=== PATIENT | male | born 1985 | race Caucasian/White ===

== ENCOUNTER 2020-12-30 12:43 | Emergency (ER) | payer OTHER, SELFPAY ==
[2020-12-30] VITALS (8 sets, daily range): BP systolic 124–146; BP diastolic 68–93; PULSE 68–84; RESP 16–18; TEMP 36.7–36.8; O2SAT 98–99
--- NOTE | 2020-12-30 12:53 | ED_ITS ---
HPI - Head Injury General Chief complaint: Trauma Stated complaint: injury to head/shoulder/elbow yest. Time Seen by Provider: 12/30/20 12:44 Source: patient Mode of arrival: Ambulatory Limitations: no limitations History of Present Illness HPI Narrative: 35-year-old male nonsmoker with noncontributory medical history presents with a chief complaint of multiple injuries suffered as a result of a work related injury. He was at a job site and walking up 7 steps when he misjudged the distance of an overhead beam and ran his head directly into it, this caused him to fall backwards and down the stairs. He does have an abrasion on the top of his head but denies any loss of consciousness, nausea or vomiting. He denies neurologic symptoms such as blurred vision, numbness, tingling, weakness. He has some upper cervical midline pain and some lower thoracic midline pain that is moderate at worst. The symptoms are worse with motion and improves with rest. He denies any chest pain or shortness of breath. He denies any numbness, tingling or weakness in his groin nor loss of control of bowel or bladder. Finally he has pain and swelling of his right ankle as a consequence of the fall MD Complaint: head injury and fall Onset (ago): day(s) Mechanism of Injury: fall Place: work Loss of Consciousness: no Location of injury: parietal Severity: moderate Radiation: neck Other Injuries: neck and lower extremity Associated symptoms: denies other symptoms Related Data Home Medications Medication Instructions Recorded Confirmed ibuprofen 200 mg PO PRN PRN #0 05/03/17 Previous Rx's Medication Instructions Recorded cyclobenzaprine 10 mg PO TID PRN #14 tab 12/30/20 ketorolac 10 mg PO Q6H PRN #14 tab 12/30/20 Allergies Allergy/AdvReac Type Severity Reaction Status Date / Time ENVIRONMENTAL Allergy Mild ITCHY Uncoded 11/29/17 12:36 THROAT Review of Systems Constitutional Constitutional: Denies chills, Denies fatigue, Denies fever(s), Denies frequent falls, Denies lethargy and Denies weakness Eyes Eyes: Denies change in vision, Denies eye discharge, Denies irritation and Denies loss of vision ENT Ears, Nose, Mouth, and Throat: Denies change in voice, Denies dizziness, Reports neck pain, Denies sore throat and Denies throat swelling Cardiovascular Cardiovascular: Denies chest pain, Denies irregular heart rhythm, Denies lightheadedness, Denies palpitations, Denies dyspnea, Denies dyspnea on exertion and Denies orthopnea Respiratory Respiratory: Denies cough, Denies dyspnea, Denies dyspnea on exertion and Denies wheezing Gastrointestinal Gastrointestinal: Denies abdominal pain, Denies change in bowel habits, Denies diarrhea, Denies nausea and Denies vomiting Musculoskeletal Musculoskeletal: Reports back pain, Reports arthralgias, Reports joint swelling, Reports neck pain and Denies numbness Integumentary/Breasts Skin/Breast: Denies pruritus, Denies erythema, Denies rash and Denies wounds Neurologic Neurologic: Denies behavioral changes, Denies confusion, Denies dizziness, Denies frequent falls, Denies loss of vision, Denies numbness and Denies weakness Psychiatric Psychiatric: Denies anxiety, Denies behavioral changes, Denies confusion, Denies depression, Denies homicidal ideation and Denies suicidal ideation Endocrine Endocrine: Denies fatigue, Denies flushing and Denies palpitations Hematologic/Lymphatic Hematologic/Lymphatic: Denies easy bruising Allergic/Immunologic Allergic/Immunologic: Denies urticaria, Denies throat swelling and Denies wheezing Patient History Family History Grandfather Stroke Social History Smoking Status: Never smoker Smoking Status: Never smoker alcohol intake frequency: 0-2 drinks per day Substance Use Type: does not use Exam Narrative Exam Narrative: GENERAL: [35] year old patient appears stated age. Well- nourished, well-developed patient, in mild distress. GCS 15 HEAD: Mild contusion and well-healed abrasion midline on the parietal scalp, no evidence of depressed skull fracture EYES: Pupils equal round and reactive. No hyphema Extraocular motions intact. No scleral icterus. No injection or drainage. ENT: Nose without bleeding, purulent drainage. No nasal septal hematoma Throat without erythema, tonsillar hypertrophy or exudate. Airway patent. NECK: Trachea midline. Mild midline tenderness of the cervical spine, no crepitance or step-offs. Patient was injured yesterday and is self splinting, no C-collar indicated CARDIOVASCULAR: Regular rate and rhythm without murmurs, gallops, or rubs. RESPIRATORY: Clear to auscultation. Breath sounds equal bilaterally. No wheezes, rales, or rhonchi. GASTROINTESTINAL: Abdomen soft, non-tender, nondistended. BACK: asphalt heater tender but free of any obvious external abnormalities. Patient exam notes decreased range of motion and muscle spasm, but no CVA tenderness, or vertebral point tenderness. There are no symptoms of cauda equina such as saddle anesthesia, and decreased reflexes, decreased sensation or strength. EXTREMITIES: Superficial abrasion overlying the right scapula, no significant swelling or ecchymosis, full but painful range of motion. Additional mild tenderness to the anterior shoulder but again, full range of motion. Right ankle tender to palpation with moderate swelling over lateral malleolus. These orthopedic injuries are closed and neurovascularly intact. BACK: Nontender without deformity or crepitance. No flank tenderness. NEURO: AOx3. SKIN: No rash or erythema of visible areas Initial Vital Signs Initial Vital Signs: Vital Signs Pulse Rate 84 12/30/20 13:02 Pulse Oximetry 99 12/30/20 13:02 Course Orders Ordered: ED Orders 12/30/20 13:07 CT cervical spine wo con Stat CT head/brain wo con Stat CT thoracic spine wo con Stat XR ankle RT min 3V Stat Vital Signs Vital signs: Vital Signs - 8 hr 12/30/20 13:02 12/30/20 13:11 12/30/20 13:26 Temperature 98.1 F Pulse Rate 84 77 79 Respiratory Rate 18 Blood Pressure 146/93 H 128/68 Pulse Oximetry 99 99 98 12/30/20 13:30 12/30/20 14:00 12/30/20 14:30 Temperature 98.1 F Pulse Rate 78 73 68 Respiratory Rate 18 Blood Pressure 125/73 124/85 125/84 Pulse Oximetry 99 99 99 12/30/20 15:59 12/30/20 16:01 Temperature 98.2 F Pulse Rate 70 70 Respiratory Rate 16 Blood Pressure 134/87 134/87 Pulse Oximetry 99 99 MDM - Head Injury Imaging Data CT scan - head: Radiologist's Impression: Idris Mcdonald 35 M [address] [id number] Scan ReportSigned Patient: Idris Mcdonald AMR#: [id number]: 1985Acct:[id number]/Sex: 35 / MDate of Service: 12/30/20Loc: EDAccession Number: [id number] Procedure: CT head/brain wo con Ordering Provider: Dre Escalante D.O. PROCEDURE: CT HEAD/BRAIN WO CON INDICATIONS: fall down flight of stairs, head injury TECHNIQUE: Noncontrast 4.5 mm thick angled axial sections acquired from the foramen magnum to the vertex, with coronal and sagittal reformats. For radiation dose reduction, the following was used: automated exposure control, adjustment of mA and/or kV according to patient size. COMPARISON: None. FINDINGS: Image quality: Excellent. CSF spaces: Basal cisterns are patent. No extra-axial fluid collections. Ventricles are normal in size and shape. Brain: No midline shift. No intracranial masses or hemorrhage. Mock-white matter interface is normal. Skull and face: Calvarium and visualized facial bones are intact, without suspicious lesions. Sinuses: Visualized sinuses and mastoids are clear. IMPRESSION: 1. No acute intracranial abnormalities. Dictated by: Rigoberto Guadalupe M.D. on 12/30/2020 at 13:32 Approved by: Rigoberto Guadalupe M.D. on 12/30/2020 at 13:33 CT - cervical spine: My Impression: Idris Mcdonald 35 M [address] [id number] Scan ReportSigned Patient: Idris Mcdonald AMR#: [id number]: 1985Acct:[id number]/Sex: 35 / MDate of Service: 12/30/20Loc: EDAccession Number: [id number] Procedure: CT cervical spine wo con Ordering Provider: Dre Escalante D.O. PROCEDURE: CT CERVICAL SPINE WO CON INDICATIONS: fall yesterday, mid to lateral neck pain, self splinting TECHNIQUE: Noncontrast 3 mm thick sections acquired from the skull base to the T4 level. Sagittal and coronal reformats were then constructed. For radiation dose reduction, the following was used: automated exposure control, adjustment of mA and/or kV according to patient size. COMPARISON: [facility], CT, CT THORACIC SPINE WO CON, 12/30/2020, 13:13. FINDINGS: Image quality: Excellent. Bones: No fractures or dislocations. Visualized superior ribs are intact. Straightening of the normal cervical lordosis noted Soft tissues: Prevertebral soft tissues are normal in thickness. No paravertebral hematomas. No apical pneumothoraces. IMPRESSION: No evidence of fracture or traumatic malalignment Straightening of the normal cervical lordosis may related to positioning or muscle spasm. Dictated by: Moi Aguillon M.D. on 12/30/2020 at 12:29 Approved by: Moi Aguillon M.D. on 12/30/2020 at 12:36 Discharge Plan Departure Patient Disposition: Home Clinical Impression: Muscle spasms of neck, Spasm of thoracic back muscle Contusion of scalp Qualifiers: Encounter type: initial encounter Qualified Code(s): S00.03XA - Contusion of scalp, initial encounter Ankle sprain Qualifiers: Encounter type: initial encounter Involved ligament of ankle: unspecified ligament Laterality: right Qualified Code(s): S93.401A - Sprain of unspecified ligament of right ankle, initial encounter Instructions: DI for Trauma Activity Restrictions/Additional Instructions: *You have been diagnosed with [fall with scalp contusion and abrasion, upper and lower back spasm and right ankle sprain. Your imaging is very reassuring and there is no evidence of fracture or dislocation.] *What to do: *Please continue to take your regular medications as directed. [ ] New medication prescriptions sent to your pharmacy: [ ] [X ] New medication written as a paper prescription [ ] No new medications given *Please follow up with your primary care provider in 2-3 days, call for an appointment. Let them know you were seen in the Emergency Department and that we ask that you be seen in follow up. We will electronically transmit a record of today's note if your PCP is in our system *If you do not have a primary care provider please contact the [facility] Resource line at [phone]. They will ask some questions about your medical history and help get you set up with a doctor in the community. *Return to Emergency Department if you should have any new, worsening or concerning symptoms, such as [fever greater than 101 F, shaking chills, worsening pain, persistent vomiting or other bothersome symptoms] Prescriptions: New cyclobenzaprine 10 mg tablet 10 mg PO TID PRN (Reason: muscle spasm) Qty: 14 RF: 0 ketorolac 10 mg tablet 10 mg PO Q6H PRN (Reason: pain) Qty: 14 RF: 0 No Action ibuprofen 200 MG tablet 200 mg PO PRN PRNQty: 0 RF: 0 Referrals: Miscellaneous,Doctor, MD [Primary Care Provider] -
--- NOTE | 2020-12-30 13:07 | DI.RAD.S_ITS ---
PROCEDURE: XR ANKLE RT MIN 3V INDICATIONS: fall with lateral ankle pain TECHNIQUE: 3 views of the ankle were acquired. COMPARISON: None. FINDINGS: Bones: No fractures or dislocations. A vertical lucency in the distal tibial metaphysis along the lateral cortex is likely caused by an artifact. Ankle mortise is normally aligned. No suspicious bony lesions. Mild degenerative joint disease. Soft tissues: Small tibiotalar joint effusion. Achilles tendon appears normal. IMPRESSION: 1. No fracture or dislocation. A lucency in the lateral cortex of the distal tibia is most likely caused by an artifact. If clinical symptoms persist or clinical suspicion for pathology is high, a repeat examination in 7-10 days, or advanced imaging such as CT or MRI is suggested for further evaluation. 2. Small tibiotalar joint effusion. 3. Mild degenerative joint disease. Dictated by: Rigoberto Guadalupe M.D. on 12/30/2020 at 13:39 Approved by: Rigoberto Guadalupe M.D. on 12/30/2020 at 13:41
--- NOTE | 2020-12-30 13:07 | DI.CT.S_ITS ---
PROCEDURE: CT THORACIC SPINE WO CON INDICATIONS: fall down stairs, midline thoracic pain to palp TECHNIQUE: Noncontrast 3 mm thick sections acquired through the region of interest in the thoracic spine. Sagittal and coronal reformats were then constructed. For radiation dose reduction, the following was used: automated exposure control. COMPARISON: [facility], CT, CT CERVICAL SPINE WO CON, 12/30/2020, 13:13. FINDINGS: Image quality: Excellent. Bones: There is normal overall bony alignment. No acute vertebral body compression fractures. No suspicious sclerotic or lytic bony lesions. Central spinal canal is of normal overall caliber. Soft tissues: No paravertebral masses or hematomas. Visualized posteromedial lungs appear clear. IMPRESSION: No thoracic spine fractures. Dictated by: Rigoberto Guadalupe M.D. on 12/30/2020 at 13:33 Approved by: Rigoberto Guadalupe M.D. on 12/30/2020 at 13:37
--- NOTE | 2020-12-30 13:07 | DI.CT.S_ITS ---
PROCEDURE: CT CERVICAL SPINE WO CON INDICATIONS: fall yesterday, mid to lateral neck pain, self splinting TECHNIQUE: Noncontrast 3 mm thick sections acquired from the skull base to the T4 level. Sagittal and coronal reformats were then constructed. For radiation dose reduction, the following was used: automated exposure control, adjustment of mA and/or kV according to patient size. COMPARISON: [facility], CT, CT THORACIC SPINE WO CON, 12/30/2020, 13:13. FINDINGS: Image quality: Excellent. Bones: No fractures or dislocations. Visualized superior ribs are intact. Straightening of the normal cervical lordosis noted Soft tissues: Prevertebral soft tissues are normal in thickness. No paravertebral hematomas. No apical pneumothoraces. IMPRESSION: No evidence of fracture or traumatic malalignment Straightening of the normal cervical lordosis may related to positioning or muscle spasm. Dictated by: Moi Aguillon M.D. on 12/30/2020 at 12:29 Approved by: Moi Aguillon M.D. on 12/30/2020 at 12:36
--- NOTE | 2020-12-30 13:07 | DI.CT.S_ITS ---
PROCEDURE: CT HEAD/BRAIN WO CON INDICATIONS: fall down flight of stairs, head injury TECHNIQUE: Noncontrast 4.5 mm thick angled axial sections acquired from the foramen magnum to the vertex, with coronal and sagittal reformats. For radiation dose reduction, the following was used: automated exposure control, adjustment of mA and/or kV according to patient size. COMPARISON: None. FINDINGS: Image quality: Excellent. CSF spaces: Basal cisterns are patent. No extra-axial fluid collections. Ventricles are normal in size and shape. Brain: No midline shift. No intracranial masses or hemorrhage. Mock-white matter interface is normal. Skull and face: Calvarium and visualized facial bones are intact, without suspicious lesions. Sinuses: Visualized sinuses and mastoids are clear. IMPRESSION: 1. No acute intracranial abnormalities. Dictated by: Rigoberto Guadalupe M.D. on 12/30/2020 at 13:32 Approved by: Rigoberto Guadalupe M.D. on 12/30/2020 at 13:33
== END 2020-12-30 16:01 | disposition home or self-care (01) ==
PROVIDERS: Emergency Provider Emergency Medicine
DX: M62.838 Other muscle spasm (principal); M62.830 Muscle spasm of back; S00.03XA Contusion of scalp, initial encounter; S93.401A Sprain of unspecified ligament of right ankle, initial encounter; W18.09XA Striking against other object with subsequent fall, initial encounter; M54.2 Cervicalgia; Y99.0 Civilian activity done for income or pay
CPT/HCPCS: 70450; 72125; 72128; 73610; 99285

== ENCOUNTER → 2024-04-09 07:24 | Outpatient (CLI) | payer OTHER, SELFPAY ==
--- NOTE | 2024-04-09 07:26 | DI.MRI.S_ITS ---
PROCEDURE: MR SHOULDER RT WO CON INDICATIONS: PAIN RIGHT JOINT SHOULDER TECHNIQUE: Noncontrast oblique coronal T2 fast spin echo with fat saturation, oblique sagittal T1 spin echo and T2 fast spin echo with fat saturation, axial T1 spin echo and T2 fast spin echo with fat saturation through the shoulder. COMPARISON: None. FINDINGS: Image quality: Excellent. Rotator cuff: In the supraspinatus, there is full-thickness, partial width tear involving the mid and posterior footprint, extending to a full-thickness, full width tear of the infraspinatus. No significant tendon retraction. The teres minor is unremarkable. The subscapularis is unremarkable. There is muscle edema of the infraspinatus. No fatty atrophy. Bones and bursae: The acromioclavicular joint is unremarkable. Type 2 acromion. No os acromial. Moderate subacromial/subdeltoid bursitis. No acute fracture. No focal chondral defect. Capsule and soft tissues: Tear of the anterior superior labrum, extending inferiorly to the anterior inferior labrum. There is a 4 mm paralabral cyst about the anterior superior labrum (series 8, image 8). The extra-articular biceps tendon is unremarkable. Moderate tendinosis of the distal intra-articular biceps tendon. Small glenohumeral effusion. Trace subcoracoid bursitis. No intra-articular body. IMPRESSION: 1. Full-thickness, partial width tear of the supraspinatus, extending to a full-thickness, full width tear of the infraspinatus. No significant tendon retraction. 2. Muscle edema of the infraspinatus. 3. Labral tear with a small paralabral cyst. 4. Moderate tendinosis of the distal intra-articular biceps tendon. Dictated by: Larisa Ireland M.D. on 04/09/2024 at 22:30 Approved by: Larisa Ireland M.D. on 04/09/2024 at 22:38
== END ==
LOC: MRI 07:25
PROVIDERS: Referring Provider Orthopaedic Surgery; Visit Provider Orthopaedic Surgery
DX: M19.011 Primary osteoarthritis, right shoulder (principal); S43.431A Superior glenoid labrum lesion of right shoulder, initial encounter; M25.511 Pain in right shoulder
CPT/HCPCS: 73221

== ENCOUNTER → 2025-06-20 10:43 | Outpatient (CLI) | payer OTHER, SELFPAY ==
--- NOTE | 2025-06-20 10:46 | DI.MRI.S_ITS ---
PROCEDURE: MR SHOULDER LT WO CON INDICATIONS: Pain in left shoulder TECHNIQUE: Noncontrast oblique coronal T2 fast spin echo with fat saturation, oblique sagittal T1 spin echo and T2 fast spin echo with fat saturation, axial T1 spin echo and T2 fast spin echo with fat saturation through the shoulder. COMPARISON: [facility], MR, MR SHOULDER RT WO CON, 04/09/2024, 8:06. FINDINGS: Image quality: Excellent. Rotator cuff: There is full-thickness rupture of distal supraspinatus and infraspinatus at their insertions on humeral head with up to 3.9 cm medial retraction of torn tendon fibers to the level of acromioclavicular joint. Distal subscapularis tendinosis is seen. Sagittal images demonstrate mild supraspinatus muscle atrophy. Bones and bursae: Superior migration of humeral head in relation to glenoid is noted. Mild acromioclavicular joint osteoarthritis. No acute fracture or dislocation. Moderate joint effusion and subacromial subdeltoid bursal fluid, no loose bodies. Capsule and soft tissues: T2 hyperintense signal and fraying involving superior anterior glenoid labrum concerning for superior anterior labral tear. Low-grade partial- thickness tear involving proximal long head of biceps tendon is seen. IMPRESSION: 1. Full-thickness rupture involving distal supraspinatus and infraspinatus at their insertions on humeral head with up to 3.9 cm medial retraction of torn tendon fibers to the level of acromioclavicular joint. Distal subscapularis tendinosis. Mild supraspinatus muscle atrophy. 2. Superior migration of humeral head in relation to glenoid. No acute fracture or dislocation. Mild acromioclavicular joint osteoarthritis. Moderate joint effusion and subacromial subdeltoid bursal fluid, no loose bodies. 3. Suggestion of superior anterior glenoid labral tear. 4. Low-grade intrasubstance partial-thickness tear involving proximal long head of biceps. Dictated by: Homar Tsang M.D. on 06/20/2025 at 12:20 Approved by: Homar Tsang M.D. on 06/20/2025 at 12:23
== END ==
LOC: MRI 10:45
PROVIDERS: PCP Orthopaedic Surgery; Referring Provider Orthopaedic Surgery; Visit Provider Orthopaedic Surgery
DX: S46.012A Strain of muscle(s) and tendon(s) of the rotator cuff of left shoulder, initial encounter (principal); M25.512 Pain in left shoulder; M19.012 Primary osteoarthritis, left shoulder; M25.412 Effusion, left shoulder; G89.11 Acute pain due to trauma; X58.XXXA Exposure to other specified factors, initial encounter
CPT/HCPCS: 73221